=== PATIENT | female | born 1930 | race Caucasian/White ===

== ENCOUNTER 2018-12-05 21:18 | Inpatient (IN) | payer MEDICARE ==
[2018-12-05] MEDS ORDERED: MORPHINE SULFATE 2 MG/ML DISP.SYRIN IV ONE ×2 (21:43→23:30)
[2018-12-05] MEDS ORDERED: ONDANSETRON HCL/PF 2 MG/ML VIAL IV ONE (21:43)
--- NOTE | 2018-12-05 21:46 | ERNOTE ---
Lower Extremity HPI - General Lower Extremities Pain: hip: left - fall from standing Time Seen by Provider: 12/05/18 21:37 Source: patient Exam Limitations: no limitations - Immun/Allergies/Home Medications Immunizations: IMMUNIZATION HX Immunizations Up to Date Yes History of Influenza Vaccine No Allergies/Adverse Reactions: Allergies Allergy/AdvReac Type Severity Reaction Status Date / Time No Known Allergies Allergy Unverified 12/05/18 21:27 Home Medications: HOME MEDICATIONS Acetaminophen [Tylenol Arthritis] 2 tab PO DAILY 12/06/18 [Last Taken 12/05/18 07:00] Acetaminophen/Diphenhydramine [Tylenol Pm Ex-Strength Caplet] 2 ea PO HS [Last Taken 12/04/18 21:00] Amlodipine Besylate/Benazepril [Lotrel 10-20 mg Capsule] 1 ea PO DAILY 12/06/18 [Last Taken 12/05/18 07:00] Ascorbic Acid [Vitamin C] 500 mg PO DAILY 12/06/18 [Last Taken 12/05/18 07:00] Fish Oil 2 cap PO BID 12/06/18 [Last Taken 12/05/18 07:00] Garlic 500 mg PO DAILY 12/06/18 [Last Taken 12/05/18 07:00] Lutein/Zeaxanthin [Ocuvite Lutein 25-5 mg Softgel] 1 ea PO DAILY 12/06/18 [Last Taken 12/05/18 07:00] Metoprolol Tartrate 50 mg PO DAILY 12/06/18 [Last Taken 12/05/18 07:00] Mv-Min/Iron/Folic/Calcium/Vitk [Women's Multivitamin Tablet] 1 ea PO DAILY 12/06/18 [Last Taken 12/05/18 07:00] - History of Present Illness Narrative: Pt lost balance with her walker and fell striking her left hip on some childrens furnature. Pain in left hip/ groin Occurred: just prior to arrival Location of Incident: home Method of Injury: Reports: fell Reason for Fall: Reports: lost balance Loss of Consciousness: Reports: no loss of consciousness Modifying Factors - (Improves): Reports: immobilization Modifying Factors - (Worsens): Reports: movement Review of Systems - Review of Systems Constitutional: Absent: recent illness EYE: Absent: vision changes Gastrointestinal/Abdominal: Absent: nausea, vomiting Musculoskeletal: Present: See HPI. Absent: back pain Skin: Absent: rash Hematologic/Lymphatic: Present: easy bruising Medical History (Last Reviewed 12/06/18 @ 03:22 by Ros Tran RN) HTN (hypertension) (Acute) Hx of fracture of right hip Hypertension Surgical History: Surgical History (Last Reviewed 12/06/18 @ 02:32 by Justin Morataya DO) History of repair of hip fracture Hx laparoscopic cholecystectomy Hx of breast biopsy Hx of rhinoplasty Family History: Family History (Last Reviewed 12/06/18 @ 02:32 by Justin Morataya DO) Other No pertinent family history Social History: Preferred Language Ecuadorean Do you have any worship or No cultural preference? Smoking Status Never smoker Alcohol Use none Drug Use none No Social History Section defined Physical Exam - Physical Exam General Appearance: Present: wd/wn, alert, mild distress Head Exam: Present: normal inspection, no evidence of injury Neck: Present: normal inspection, nontender, supple Respiratory: Present: no respiratory distress, no accessory muscle use Gastrointestinal/Abdominal: Present: nontender, nondistended, soft Back Exam: Present: normal range of motion Extremity Exam: Present: bony tenderness - pelvis, and left groin/ hip. , other - vascular intact to left leg to foot. Neurological Exam: Present: alert, oriented, normal mood/affect, no motor/sensory deficits, other - good m/s to left leg Skin Exam: Present: normal color, warm/dry Progress - Results and Orders Patient's Lab Results:: I have reviewed the patient's lab results. Results and Orders: Laboratory Tests 12/05/18 12/05/18 22:14 22:14 WBC 5.5 Hgb 12.1 L Hct 38.5 Plt Count 210 Sodium 137 Potassium 3.7 Chloride 100 Carbon Dioxide 27.9 BUN 21 Creatinine 0.89 Random Glucose 116 H Calcium 10.0 - Vital Signs Patient's Vital Signs:: I have reviewed the patient's vital signs. Vital Signs: Vital Signs 12/05/18 21:21 Temperature 36.5 C Pulse Rate 80 Respiratory Rate 26 H Blood Pressure 173/83 H O2 Sat by Pulse Oximetry 87 L - X-Ray X-Ray #1 X-Ray: pelvis Interpretation: Reviewed by me X-ray Comments: IMPRESSION: 1. No definite displaced pelvic fracture. 2. Additional comments are as above. Electronically signed by Kavita Toussaint M.D X-Ray #2 X-Ray: hip Interpretation: Reviewed by me X-ray Comments: IMPRESSION: 1. Evaluation overall limited by underlying osteoporosis. Questionable step-off of the cortex at the subcapital region of the left femoral neck versus artifact from positioning. I would recommend consideration of noncontrast CT examination of the left hip. 2. Incidental note of partially visualized right hip hemiarthroplasty hardware, with lucent appearance of the proximal femoral bone around the hardware as above. Consider possible aseptic loosening versus infection. Ordering provider Justin Morataya DO was informed regarding the above results by telephone on 12/05/2018 11:12 PM. Electronically signed by Kavita Toussaint M.D.. - CT/Ultrasound CT/Ultrasound Narrative: CT left hip: IMPRESSION: 1. Nondisplaced, mildly impacted subcapital left femoral neck fracture. 2. Additional comments are as above. Electronically signed by Kavita Toussaint M.D - Progress/Reassessment Chief Complaint: Hip Pain/Injury Progress:: Improved Progress Note-Subjective: 12/06/18 06:27 Approx 02:[address] Santiago and he agrees with admit and asks that the patient remain NPO as she will probably go to surgery this am. I spoke with Dr. Hines and she agrees with admission and will see the patient in the morning. Departure Clinical Impression: Subcapital fracture of left femur Qualifiers: Encounter type: initial encounter Fracture type: closed Qualified Code(s): S72.012A - Unspecified intracapsular fracture of left femur, initial encounter for closed fracture - Departure Disposition: Still a patient Condition: Good
[2018-12-05 22:23] LABS: Anion Gap 12.8 mmol/L (6.8-13.8); BUN/Creatinine Ratio 23.6 (9.0-21.6); Carbon Dioxide 27.9 mmol/L (24-32.6); Estimated Creat Clear 40.9; Potassium 3.7 mmol/L (3.4-4.6)
[2018-12-05 22:24] LABS: Hematocrit 38.5 % (37.0-47.0); Hemoglobin 12.1 gm/dL (12.5-16.0); Mean Cell Volume 94.4 fl (78-100); Mean Corpuscular Hemoglobin 29.7 pg (27-31); Mean Corpuscular Hgb Conc 31.4 g/dl (32-36); Mean Platelet Volume 10.1 fl (8-12.5); Neutrophil # 4.1 K/mm3 (1.3-6.0); Neutrophil % 73.7 % (42-75.0); Platelet Count 210 K/mm3 (150-450); Red Blood Count 4.08 M/mm3 (4.2-5.4); Red Cell Distribution Width 13.4 % (11.5-14.0); White Blood Count 5.5 K/mm3 (4.0-10.5)
[2018-12-06] MEDS ORDERED: MORPHINE SULFATE 2 MG/ML DISP.SYRIN IV PRN ×2 (02:11→14:26)
[2018-12-06 03:20] LABS: Urine Bilirubin Negative (NEGATIVE); Urine Blood Negative /ul (NEGATIVE); Urine Ketone Negative (NEGATIVE); Urine Protein Negative (NEGATIVE); Urine Specific Gravity 1.015 SP.GR. (1.005-1.010); Urine Urobilinogen Normal (NORMAL)
[2018-12-06 03:27] LABS: Urine Nitrite Positive (NEGATIVE)
[2018-12-06 03:28] LABS: Urine Appearance Slightly Cloudy (CLEAR); Urine Bacteria 3+; Urine Color Yellow; Urine RBC None Seen /hpf (0-5); Urine WBC None Seen /hpf (0-5)
[2018-12-06] MEDS ORDERED: ceFAZolin SODIUM 1 GM VIAL IV PRN (08:30)
--- NOTE | 2018-12-06 08:30 | CONS ---
[facility] - General Date of Service: 12/06/18 Narrative: Mrs. Sun is a pleasant 88-year-old female who got tripped up by her dog at home and fell onto her left hip resulting in significant left hip pain and an inability to weight-bear. She states that she lives at home with her daughter. She uses a walker which she felt was slightly top-heavy because she likes to carry around a lot of things and this contributed to the fall as well. She is a household ambulator who performs her own activities of daily living. She has had a previous right hip hemiarthroplasty. She denies any previous left hip pain. She otherwise states that she is in decent health. She denies any other areas of pain at this time. Source: patient Exam Limitations: no limitations - History of Present Illness Timing/Duration: 24 hours Severity: mild Modifying Factors - (Worsens): Reports: movement Modifying Factors - (Improves): Reports: immobilization Associated Symptoms: denies symptoms Allergies/Adverse Reactions: Allergies No Known Allergies Allergy (Unverified 12/05/18 21:27) Home Medications: Home Medications Medication Instructions Recorded Last Taken Acetaminophen [Tylenol Arthritis] 2 tab PO DAILY 12/06/18 12/05/18 07:00 Acetaminophen/Diphenhydramine 2 ea PO HS 12/06/18 12/04/18 21:00 [Tylenol Pm Ex-Strength Caplet] Amlodipine Besylate/Benazepril 1 ea PO DAILY 12/06/18 12/05/18 07:00 [Lotrel 10-20 mg Capsule] Ascorbic Acid [Vitamin C] 500 mg PO DAILY 12/06/18 12/05/18 07:00 Fish Oil 2 cap PO BID 12/06/18 12/05/18 07:00 Garlic 500 mg PO DAILY 12/06/18 12/05/18 07:00 Lutein/Zeaxanthin [Ocuvite Lutein 1 ea PO DAILY 12/06/18 12/05/18 07:00 25-5 mg Softgel] Metoprolol Tartrate 50 mg PO DAILY 12/06/18 12/05/18 07:00 Mv-Min/Iron/Folic/Calcium/Vitk 1 ea PO DAILY 12/06/18 12/05/18 07:00 [Women's Multivitamin Tablet] Procedures ANT NASAL PACK FOR EPIST (01/03/10) Colonoscopy (07/01/05) Medications - Medications Current Medications: Current Medications Morphine Sulfate (Morphine Sulfate) 2 mg IV Q1H PRN PRN Reason: Pain Stop: 01/05/19 02:16 Last Admin: 12/06/18 07:08 Dose: 2 mg Documented by: Review of Systems - Review of Systems Generalized/Overall Review: Present: No Symptoms Reported Physical Examination - Exam Narrative: Left lower extremity: No ecchymosis, lacerations, or abrasions. Palpable dorsalis pedis pulse. Sensations intact light touch. She is able to flex and extend her toes. She has pain with any hip range of motion. Her thigh and calf are soft. Vital Signs: Vital Signs - Last Taken Temp 36.1 C 12/06/18 06:52 Pulse 100 12/06/18 06:52 Resp 16 12/06/18 06:52 BP 130/77 12/06/18 06:52 Pulse Ox 94 12/06/18 06:52 O2 Oxygen Delivery Method Room Air Constitutional: Present: Alert, Oriented x3 - Results and Findings: Narrative: AP pelvis 2 views of left hip, CT left hip: Mildly impacted subcapital femoral neck fracture without any significant displacement. Status post right hip hemiarthroplasty Lab/Microbiology results last 24 hrs: Abnormal/Pending Laboratory Last 24 HRS 12/06/18 12/05/18 12/05/18 03:19 22:14 22:14 RBC 4.08 L Hgb 12.1 L MCHC 31.4 L Lymphocytes % 18.5 L Lymphocytes # 1.02 L BUN/Creatinine Ratio 23.6 H Random Glucose 116 H Urine Nitrate Positive H Urine Bacteria 3+ H - Assessments/Findings (1) Subcapital fracture of left femur Diagnosis(s): We discussed her pathology and options for treatment. The plan is to proceed with percutaneous fixation with cannulated screws by my partner. He will discuss this with her and as long as she is medically sound the plan is to proceed with surgery today. She will continue to be n.p.o. She will receive IV Ancef preoperatively. Problem: Acute Qualifiers: Encounter type: initial encounter Fracture type: closed Qualified Code(s): S72.012A - Unspecified intracapsular fracture of left femur, initial encounter for closed fracture
[2018-12-06] MEDS ORDERED: NORMAL SALINE 500 ML IV ONE (10:25)
[2018-12-06] MEDS ORDERED: LUTEIN PO SCH (11:15)
[2018-12-06] MEDS ORDERED: ZEAXANTHIN PO SCH (11:15)
--- NOTE | 2018-12-06 11:18 | HP ---
Chief Complaint - Chief Complaint Date of Service: 12/06/18 Time of Service: 11:09 Chief Complaint: I fell and now I have left hip pain. History of Present Illness: 88-year-old female with past medical history of osteoporosis, right h ip hemiarthroplasty, and hypertension was brought to our ER due to left hip pain and inability to ambulate secondary to a fall that occurred in her home a day ago when patient tripped with her walker while walking in her house. Patient reports tripping over her dog and losing her balance and falling onto her left side. She reports hitting her left hip and left shoulder. Since then she has been unable to bear weight on the involved side and has pain at the hip. Patient is active and carries out her activities of daily living with the assistance of a walker and also lives with her daughter. Medical History (Last Reviewed 12/06/18 @ 03:22 by Ros Tran RN) HTN (hypertension) (Acute) Hx of fracture of right hip Hypertension Surgical History: Surgical History (Last Reviewed 12/06/18 @ 03:22 by Ros Tran RN) History of repair of hip fracture Hx laparoscopic cholecystectomy Hx of breast biopsy Hx of rhinoplasty Family History: Family History (Last Reviewed 12/06/18 @ 03:22 by Ros Tran RN) Father No pertinent family history Mother No pertinent family history Other Social History: Patient Lives/Resources Home Utilized Occupation retired Preferred Language Syriac Do you have any samaritan or No cultural preference? Smoking Status Never smoker Have you smoked in the past 12 No months Do you dip or chew tobacco No Alcohol Use none Drug Use none No Social History Section defined Peds Patient Hx - Developmental: No Pertinent Hx Peds Patient Hx - Medical: No Pertinent Hx Peds Patient Hx - Cardiac/Respiratory: No Pertinent Hx Peds Patient Hx - Surgical: No Surgical History Patient History - Cancer: No Hx of Cancer Review Of Systems (GEN) - Review of Systems Generalized/Overall Review: Present: No Symptoms Reported EENTM: Present: No Symptoms Reported Respiratory: Present: No Symptoms Reported Cardiac: Present: No Symptoms Reported Abdominal: Present: No Symptoms Reported Genitourinary: Present: No Symptoms Reported Musculoskeletal: Present: Joint Pain, Joint Swelling, Other - Left hip pain and swelling with tenderness to palpation Neurological: Present: No Symptoms Reported Skin: Present: No Symptoms Reported Endocrine: Present: No Symptoms Reported Immunizations: IMMUNIZATION HX Immunizations Up to Date Yes History of Influenza Vaccine No Allergies/Adverse Reactions: Allergies Allergy/AdvReac Type Severity Reaction Status Date / Time No Known Allergies Allergy Unverified 12/05/18 21:27 Home Medications: HOME MEDICATIONS Acetaminophen [Tylenol Arthritis] 2 tab PO DAILY 12/06/18 [Last Taken 12/05/18 07:00] Acetaminophen/Diphenhydramine [Tylenol Pm Ex-Strength Caplet] 2 ea PO HS 12/06/18 [Last Taken 12/04/18 21:00] Amlodipine Besylate/Benazepril [Lotrel 10-20 mg Capsule] 1 ea PO DAILY 12/06/18 [Last Taken 12/05/18 07:00] Ascorbic Acid [Vitamin C] 500 mg PO DAILY 12/06/18 [Last Taken 12/05/18 07:00] Fish Oil 2 cap PO BID 12/06/18 [Last Taken 12/05/18 07:00] Garlic 500 mg PO DAILY 12/06/18 [Last Taken 12/05/18 07:00] Lutein/Zeaxanthin [Ocuvite Lutein 25-5 mg Softgel] 1 ea PO DAILY 12/06/18 [Last Taken 12/05/18 07:00] Metoprolol Tartrate 50 mg PO DAILY 12/06/18 [Last Taken 12/05/18 07:00] Mv-Min/Iron/Folic/Calcium/Vitk [Women's Multivitamin Tablet] 1 ea PO DAILY 12/06/18 [Last Taken 12/05/18 07:00] Exam - Exam Vital Signs: Vital Signs - Last Taken Temp 36.6 C 12/06/18 10:00 Pulse 106 H 12/06/18 10:00 Resp 18 12/06/18 10:00 BP 132/78 12/06/18 10:00 Pulse Ox 98 12/06/18 10:00 Constitutional: Present: Alert, Oriented x3, Cooperative, Well developed, Well nourished, No distress ENT Exam: Present: normal ENT inspection, hearing grossly normal, pharynx normal, TMs normal Eye Exam: bilateral eye: normal inspection, PERRL, EOMI Neck: Present: non-tender, full range of motion, supple, normal inspection, trachea midline Back Exam: Present: normal inspection, no CVA tenderness, no vertebral tenderness Breasts: Present: Exam deferred Respiratory: Present: chest non-tender, lungs clear, normal breath sounds, no respiratory distress, no accessory muscle use Cardiovascular/Chest: Present: normal peripheral pulses, regular rate, rhythm, no chest tenderness, no edema, no gallop, no JVD, no murmur Peripheral Pulses: carotid (R): 3+, carotid (L): 3+, femoral (R): 3+, femoral (L): 3+ Abdomen: Present: Normal bowel sounds, soft, nontender, nondistended, no rebound tenderness, no hepatospenomegaly, no masses /Rectal: Present: Exam deferred Extremity: Present: no pedal edema, no calf tenderness, normal capillary refill, other - Decreased range of motion left hip, with tenderness to palpation. No ecchymoses or open wounds visible. Normal pulse and normal sensation noted. 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, normal cerebellar test, no motor/sensory deficits, alert, normal mood/affect, oriented x 3 Appearance: Present: appropriate appearance, appropriate insight, neat, no memory impairment Eye contact: Present: cooperative, good eye contact, normal speech Thoughts: Present: normal thought pattern Diagnostic Studies: Abnormal Lab Results 12/05/18 12/05/18 12/06/18 Range/Units 22:14 22:14 03:19 RBC 4.08 L (4.2-5.4) M/mm3 Hgb 12.1 L (12.5-16.0) gm/dL MCHC 31.4 L (32-36) g/dl Lymphocytes % 18.5 L (20-51) % Lymphocytes # 1.02 L (1.5-3.5) k/mm3 BUN/Creatinine Ratio 23.6 H (9.0-21.6) Random Glucose 116 H (70-110) mg/dL Urine Nitrate Positive H (NEGATIVE) Urine Bacteria 3+ H (NONE) Laboratory Results WBC 5.5 K/mm3 (4.0-10.5) 12/05/18 22:14 RBC 4.08 M/mm3 (4.2-5.4) L 12/05/18 22:14 Hgb 12.1 gm/dL (12.5-16.0) L 12/05/18 22:14 Hct 38.5 % (37.0-47.0) 12/05/18 22:14 MCV 94.4 fl (78-100) 12/05/18 22:14 MCH 29.7 pg (27-31) 12/05/18 22:14 MCHC 31.4 g/dl (32-36) L 12/05/18 22:14 RDW 13.4 % (11.5-14.0) 12/05/18 22:14 Plt Count 210 K/mm3 (150-450) 12/05/18 22:14 MPV 10.1 fl (8-12.5) 12/05/18 22:14 Immature Gran % (Auto) 0.40 % (0.001-0.429) 12/05/18 22:14 Immature Gran # (Auto) 0.02 K/mm3 (0.000-0.0310) 12/05/18 22:14 Neutrophils % 73.7 % (42-75.0) 12/05/18 22:14 Lymphocytes % 18.5 % (20-51) L 12/05/18 22:14 Monocytes % 6.7 % (0.0-9) 12/05/18 22:14 Eosinophils % 0.5 % (0.0-3.0) 12/05/18 22:14 Basophils % 0.2 % (0.0-1.0) 12/05/18 22:14 Nucleated RBC % 0.0 k/mm3 (0-1) 12/05/18 22:14 Neutrophils # 4.1 K/mm3 (1.3-6.0) 12/05/18 22:14 Lymphocytes # 1.02 k/mm3 (1.5-3.5) L 12/05/18 22:14 Monocytes # 0.4 k/mm3 (0.0-1.0) 12/05/18 22:14 Eosinophils # 0.0 k/mm3 (0.0-0.7) 12/05/18 22:14 Absolute Basophils 0.0 k/mm3 (0.0-0.1) 12/05/18 22:14 Sodium 137 mmol/L (132-142) 12/05/18 22:14 Plasma Sodium 137 mmol/L (130-142) 12/05/18 22:14 Potassium 3.7 mmol/L (3.4-4.6) 12/05/18 22:14 Chloride 100 mmol/L (97-106) 12/05/18 22:14 Carbon Dioxide 27.9 mmol/L (24-32.6) 12/05/18 22:14 Anion Gap 12.8 mmol/L (6.8-13.8) 12/05/18 22:14 BUN 21 mg/dL (3-23) 12/05/18 22:14 Creatinine 0.89 mg/dL (0.4-1.4) 12/05/18 22:14 Est GFR (Non-Af Amer) 64 mL/min (60-130) 12/05/18 22:14 BUN/Creatinine Ratio 23.6 (9.0-21.6) H 12/05/18 22:14 Random Glucose 116 mg/dL (70-110) H 12/05/18 22:14 Calcium 10.0 mg/dL (7.9-10.9) 12/05/18 22:14 Urine Color Yellow 12/06/18 03:19 Urine Appearance Slightly cloudy (CLEAR) 12/06/18 03:19 Urine pH 6.0 pH (5.0-7.0) 12/06/18 03:19 Ur Specific [place] 1.015 SP.GR. (1.005-1.010) 12/06/18 03:19 Urine Protein Negative mg/dL (NEGATIVE) 12/06/18 03:19 Urine Glucose (UA) Negative mg/dL (NEGATIVE) 12/06/18 03:19 Urine Ketones Negative mg/dL (NEGATIVE) 12/06/18 03:19 Urine Blood Negative /ul (NEGATIVE) 12/06/18 03:19 Urine Nitrate Positive (NEGATIVE) H 12/06/18 03:19 Urine Bilirubin Negative mg/dl (NEGATIVE) 12/06/18 03:19 Urine Urobilinogen Normal EU/dl (NORMAL) 12/06/18 03:19 Ur Leukocyte Esterase Negative /ul (NEGATIVE) 12/06/18 03:19 Urine RBC None seen /hpf (0-5) 12/06/18 03:19 Urine WBC None seen /hpf (0-5) 12/06/18 03:19 Ur Epithelial Cells None seen /hpf (0-5) 12/06/18 03:19 Urine Bacteria 3+ (NONE) H 12/06/18 03:19 Urine Culture Comments Culture to follow 12/06/18 03:19 Assessment/Plan - Narrative Narrative: Patient was evaluated as well as a medical record which included a x-ray of the left hip followed by a CT scan of the involved hip which confirmed a nondisplaced mildly impacted subcapital left femoral neck fracture. Orthopedic surgeon was consulted and agreed to operate on patient sometime today, therefore patient was placed on n.p.o. and was treated with prophylactic IV antibiotics. There were no significant finding on labs and patient maintains stable vitals. We will follow-up after the procedure. In the meantime she is been administered medications for pain control and IV fluids for optimal hydration. - Assessment/Plan (1) Subcapital fracture of left femur Problem: Acute Qualifiers: Encounter type: initial encounter Fracture type: closed Qualified Code(s): S72.012A - Unspecified intracapsular fracture of left femur, initial encounter for closed fracture (2) Fall Problem: Acute (3) HTN (hypertension) Problem: Acute (4) Frailty Problem: Acute
[2018-12-06] MEDS: NORMAL SALINE 1,000 ML IV ONE (11:24)
[2018-12-06] MEDS: METOPROLOL TARTRATE 50 MG TABLET PO SCH (11:36)
--- NOTE | 2018-12-06 11:36 | ANES ---
Anesthesia Pre Procedure Eval Vitals/Labs: Last Vital Signs Temp 36.6 C 12/06/18 10:00 Pulse 106 H 12/06/18 10:00 Resp 18 12/06/18 10:00 BP 132/78 12/06/18 10:00 Pulse Ox 98 12/06/18 10:00 HOME MEDICATIONS Acetaminophen [Tylenol Arthritis] 2 tab PO DAILY 12/06/18 [Last Taken 12/05/18 07:00] Acetaminophen/Diphenhydramine [Tylenol Pm Ex-Strength Caplet] 2 ea PO HS 12/06/18 [Last Taken 12/04/18 21:00] Amlodipine Besylate/Benazepril [Lotrel 10-20 mg Capsule] 1 ea PO DAILY 12/06/18 [Last Taken 12/05/18 07:00] Ascorbic Acid [Vitamin C] 500 mg PO DAILY 12/06/18 [Last Taken 12/05/18 07:00] Fish Oil 2 cap PO BID 12/06/18 [Last Taken 12/05/18 07:00] Garlic 500 mg PO DAILY 12/06/18 [Last Taken 12/05/18 07:00] Lutein/Zeaxanthin [Ocuvite Lutein 25-5 mg Softgel] 1 ea PO DAILY 12/06/18 [Last Taken 12/05/18 07:00] Metoprolol Tartrate 50 mg PO DAILY 12/06/18 [Last Taken 12/05/18 07:00] Mv-Min/Iron/Folic/Calcium/Vitk [Women's Multivitamin Tablet] 1 ea PO DAILY 12/06/18 [Last Taken 12/05/18 07:00] Allergies/Adverse Reactions: Allergies Allergy/AdvReac Type Severity Reaction Status Date / Time No Known Allergies Allergy Unverified 12/05/18 21:27 - Planned Procedure Planned Procedure: L-HIP FRACTURE Medication List Reviewed:: Yes Allergies Verified: Yes Medical History (Last Reviewed 12/06/18 @ 11:32 by Tarik Duncan CRNA) HTN (hypertension) (Acute) Hx of fracture of right hip Hypertension Surgical History (Last Reviewed 12/06/18 @ 11:32 by Tarik Duncan CRNA) History of repair of hip fracture Hx laparoscopic cholecystectomy Hx of breast biopsy Hx of rhinoplasty Family History (Last Reviewed 12/06/18 @ 11:32 by Tarik Duncan CRNA) Father No pertinent family history Mother No pertinent family history Other - Family Anesthesia History Family History:: no untoward family reactions to anesthesia, no familial bleeding tendencies, no family history of clotting disorders, no family history of premature - Airway/Neck/Teeth Within Normal Limits:: Yes Denture Type: Full upper Neck Exam: full range of motion Mallampatti Score: 2 Thyromental (T-M) distance: > 6 cm Mandibulo Hyoid distance: > 3 cm - Respiratory Respiratory Physical: lungs clear - currently on O2 Smoking Status: Never smoker Discussed smoking cessation including day of surgery: No Sleep Apnea currently treated: No Sleep Apnea by current assessment: No - Cardiovascular Cardiac History: hypertension, hyperlipidemia Tolerate Activity: Fair - with walker Heart Sounds: S1 & S2, Irregular - occassionally - Anesthesia Assessment and Plan ASA Class: PS, III Anesthesia Type Plan: Spinal Planned difficult intubation/equipment available: No
--- NOTE | 2018-12-06 13:08 | ANES ---
Post Anesthesia Assessment - Vital Signs Vitals: Last Vital Signs Temp 36.6 C 12/06/18 10:00 Pulse 106 H 12/06/18 11:36 Resp 18 12/06/18 10:00 BP 132/78 12/06/18 11:36 Pulse Ox 98 12/06/18 10:00 Airway Patency: Normal - Mental Status Level Of Consciousness: Awake, Alert - Pain Level Pain Score: 0 - N/V Assessment Nausea/Vomiting Presence: None Dehydration:: No
[2018-12-06] MEDS ORDERED: MAGNESIUM HYDROXIDE 30 ML UDC PO PRN (14:26)
[2018-12-06] MEDS ORDERED: ACETAMINOPHEN 500 MG TABLET PO PRN (14:26)
[2018-12-06] MEDS ORDERED: MAG HYDROX/ALUMINUM HYD/SIMETH 30 ML UDC PO PRN (14:26)
[2018-12-06] MEDS ORDERED: HYDROcodone/ACETAMINOPHEN 1 EACH TABLET PO PRN ×2 (14:26)
--- NOTE | 2018-12-06 14:36 | ANES ---
Anesthesia Pre Procedure Eval Vitals/Labs: Last Vital Signs Temp 36.6 C 12/06/18 10:00 Pulse 106 H 12/06/18 11:36 Resp 18 12/06/18 10:00 BP 132/78 12/06/18 11:36 Pulse Ox 98 12/06/18 10:00 HOME MEDICATIONS Acetaminophen [Tylenol Arthritis] 2 tab PO DAILY 12/06/18 [Last Taken 12/05/18 07:00] Acetaminophen/Diphenhydramine [Tylenol Pm Ex-Strength Caplet] 2 ea PO HS 12/06/18 [Last Taken 12/04/18 21:00] Amlodipine Besylate/Benazepril [Lotrel 10-20 mg Capsule] 1 ea PO DAILY 12/06/18 [Last Taken 12/05/18 07:00] Ascorbic Acid [Vitamin C] 500 mg PO DAILY 12/06/18 [Last Taken 12/05/18 07:00] Fish Oil 2 cap PO BID 12/06/18 [Last Taken 12/05/18 07:00] Garlic 500 mg PO DAILY 12/06/18 [Last Taken 12/05/18 07:00] Lutein/Zeaxanthin [Ocuvite Lutein 25-5 mg Softgel] 1 ea PO DAILY 12/06/18 [Last Taken 12/05/18 07:00] Metoprolol Tartrate 50 mg PO DAILY 12/06/18 [Last Taken 12/05/18 07:00] Mv-Min/Iron/Folic/Calcium/Vitk [Women's Multivitamin Tablet] 1 ea PO DAILY 12/06/18 [Last Taken 12/05/18 07:00] Allergies/Adverse Reactions: Allergies Allergy/AdvReac Type Severity Reaction Status Date / Time No Known Allergies Allergy Unverified 12/05/18 21:27 - Planned Procedure Planned Procedure: ORIF Left HIP Medication List Reviewed:: Yes Allergies Verified: Yes Medical History (Last Reviewed 12/06/18 @ 14:35 by Rao Whitley CRNA) HTN (hypertension) (Acute) Hx of fracture of right hip Hypertension Surgical History (Last Reviewed 12/06/18 @ 14:35 by Rao Whitley CRNA) History of repair of hip fracture Hx laparoscopic cholecystectomy Hx of breast biopsy Hx of rhinoplasty Family History (Last Reviewed 12/06/18 @ 14:35 by Rao Whitley CRNA) Father No pertinent family history Mother No pertinent family history Other - Family Anesthesia History Family History:: no untoward family reactions to anesthesia, no familial bleeding tendencies, no family history of clotting disorders, no family history of premature - Airway/Neck/Teeth Within Normal Limits:: Yes Denture Type: Full upper Mallampatti Score: 2 Thyromental (T-M) distance: > 6 cm Mandibulo Hyoid distance: > 3 cm - Respiratory Respiratory Physical: decreased breath sounds Smoking Status: Never smoker Discussed smoking cessation including day of surgery: No Sleep Apnea currently treated: No Sleep Apnea by current assessment: No Discussed Risks/Treatment of LYSSA: No - Cardiovascular Tolerate Activity: Fair Heart Sounds: S1 & S2, Regular - Anesthesia Assessment and Plan ASA Class: PS, III, E Anesthesia Type Plan: Spinal
--- NOTE | 2018-12-06 14:36 | ANES ---
Post Anesthesia Discharge - Transfer of Care Transfer of Care handoff given to nurse: Yes - Discharge from PACU Discharge from PACU when meets criteria: Yes - Discharge to ASU Discharge to ASU-no complications/pt stable: Yes
--- NOTE | 2018-12-06 14:39 | OR ---
Operative Report - Dictated Report Narrative: Date: 12/06/2018 Surgeon: Giles Shaw M.D. Rubber Stamp Maker: Anderson Domínguez PA-C Preoperative diagnosis: Left valgus impacted, subcapital femoral neck fracture Postoperative diagnosis: Left valgus impacted, subcapital femoral neck fracture Operations and procedures: 1. Percutaneous cannulated screw fixation of a left valgus impacted femoral neck fracture 2. Intraoperative interpretation of radiographs Anesthesia: Spinal Specimens: None Estimated blood loss: Less than 25 mL Retained implants: [employer] 7.0 mm cannulated screws 3, associated washers 2 Complications: None Indications for procedure: Genesis is an 88-year-old female household ambulator who injured the left leg aftera fall from standing height. They were admitted to the hospital after being evaluated in the emergency department. Once the medical provider felt that they were stable for surgical treatment, the risks and benefits alternatives were discussed. The risks of , blood clots, bleeding, infection, nerve/tendon/blood vessel injury, malunion, nonunion, failure of im plants, painful implants, arthrosis, and need for additional procedures were discussed. The extremity was marked and consent was obtained on the floor. Procedure: After marking the operative extremity on the floor, the patient was taken to the operating room. A timeout was performed. IV antibiotics consisting of 1 g of Ancef was administered. A spinal anesthetic was induced by anesthesia, and the patient was then placed onto a fracture table with a well-padded perineal post. The non-operative leg was placed in a well-padded well leg edmonds in lithotomy position with an SCD on the leg. The operative leg was placed in a well-padded traction boot. No significant reduction maneuver was performed and the leg was placed in a minimal amount of traction. C-arm was brought in to confirm that we had obtained adequate visualization of the fracture and necessary anatomic landmarks of the proximal femur. Next the hip was then prepped and draped in a standard sterile fashion. Next, 3 guidepins were placed through a small lateral incision in an inverted triangle fashion around the periphery of the femoral neck paralleling the head neck angle. C-arm was used to confirm appropriate position and depth of the guide pins. These were then sequentially measured and drilled across the fracture site. Three 7.0 mm partially threaded cannulated screws of appropriate lengths were then placed sequentially and hand tightened to provide compression across the fracture site. C-arm was used to confirm appropriate length of our screws. Final images were obtained confirming no screw penetration into the joint. The hip was placed through range of motion and showed no crepitance. The wound was then copiously irrigated with normal saline and subcutaneous tissue closed with 3-0 Vicryl, and the skin was closed with any. Sterile dressings of Xeroform, 4 x 4s, and tegaderm were applied. All sponge, sharp, and instrument counts were correct prior to closing the wounds. The patient was then awoken and transferred to the postanesthesia care unit in stable condition.
[2018-12-06] MEDS: NORMAL SALINE 1,000 ML IV PRN ×2 (15:20→23:22)
[2018-12-06] MEDS: ENALAPRIL MALEATE 20 MG TABLET PO SCH (15:40)
[2018-12-06] MEDS: amLODIPine BESYLATE 10 MG TABLET PO SCH (15:40)
[2018-12-06] MEDS ORDERED: SENNOSIDES/DOCUSATE SODIUM 1 TAB TABLET PO SCH (21:00)
[2018-12-06] MEDS: OMEGA-3 FATTY ACIDS 1 CAP CAPSULE PO SCH (21:13)
[2018-12-07 05:45] LABS: Hematocrit 35.1 % (37.0-47.0); Hemoglobin 11.1 gm/dL (12.5-16.0); Mean Cell Volume 96.7 fl (78-100); Mean Corpuscular Hemoglobin 30.6 pg (27-31); Mean Corpuscular Hgb Conc 31.6 g/dl (32-36); Mean Platelet Volume 10.1 fl (8-12.5); Neutrophil # 8.9 K/mm3 (1.3-6.0); Platelet Count 162 K/mm3 (150-450); Red Blood Count 3.63 M/mm3 (4.2-5.4); Red Cell Distribution Width 13.2 % (11.5-14.0); White Blood Count 10.2 K/mm3 (4.0-10.5)
[2018-12-07 05:58] LABS: Anion Gap 8.1 mmol/L (6.8-13.8); BUN/Creatinine Ratio 24.2 (9.0-21.6); Calcium * 8.8 mg/dL (7.9-10.9); Carbon Dioxide 30.2 mmol/L (24-32.6); Estimated Creat Clear 58.7; Potassium 4.3 mmol/L (3.4-4.6)
[2018-12-07] MEDS: NORMAL SALINE 1,000 ML IV PRN ×2 (07:53→16:59)
[2018-12-07] MEDS ORDERED: BETA-CAROTENE(A) W-C , E/MIN 1 TAB TABLET PO SCH (09:00)
[2018-12-07] MEDS ORDERED: ACETAMINOPHEN 650 MG TABLET PO SCH (09:00)
[2018-12-07] MEDS ORDERED: ASCORBIC ACID 500 MG TABLET PO SCH (09:00)
[2018-12-07] MEDS ORDERED: NALOXONE HCL 0.4 MG/ML VIAL IV STA ×2 (11:43→18:35)
[2018-12-07] MEDS ORDERED: LIDOCAINE HCL 50 ML VIAL IM ONE (11:51)
--- NOTE | 2018-12-07 12:03 | PN ---
Subjective - Date and Time Seen Date: 12/07/18 Time: 11:46 Subjective Narrative: Px is obtunded and unresponsive to verbal or pain stimuli. Objective Objective Narrative: 88-year-old female admitted for left hip fracture was evaluated at bedside and was found to be somnolent difficult to arouse and unresponsive to verbal and painful stimuli. Patient underwent a successful fracture repair in OR yesterday afternoon and was being treated with oral pain medications, she was administered the last dose early this morning and since then she has been sleeping soundly and snoring. Patient however is saturating adequately maintained stable vitals. Given the duration of this adverse effect to the medications she is to be administered Narcan to reverse the effects of the opioids. We will reevaluate her shortly after the medication has been administered. Patient's postop hemoglobin is at 11 and electrolytes all within normal limits. Patient was also found to have a UTI and growth of bacteria on her urine culture, so IV antibiotics were added to her treatment. - Review of Systems Generalized/Overall Review: Reports: No Symptoms Reported EENTM: Reports: No Symptoms Reported Respiratory: Reports: No Symptoms Reported Cardiac: Reports: No Symptoms Reported Abdominal: Reports: No Symptoms Reported Genitourinary Symptoms: Reports: No Symptoms Reported Musculoskeletal Complaints: Reports: Joint Pain, Joint Swelling Neurological: Reports: No Symptoms Reported Skin: Reports: No Symptoms Reported Endocrine: Reports: No Symptoms Reported - Vitals Vitals: Last Vital Signs Temp 36.6 C 12/07/18 10:12 Pulse 89 12/07/18 10:12 Resp 18 12/07/18 10:12 BP 144/59 12/07/18 10:12 Pulse Ox 98 12/07/18 10:12 - Abnormal Lab Findings Abnormal Lab Findings: Abnormal Lab Results 12/07/18 12/07/18 Range/Units 05:40 05:40 RBC 3.63 L (4.2-5.4) M/mm3 Hgb 11.1 L (12.5-16.0) gm/dL Hct 35.1 L (37.0-47.0) % MCHC 31.6 L (32-36) g/dl Immature Gran % (Auto) 0.80 H (0.001-0.429) % Immature Gran # (Auto) 0.08 H (0.000-0.0310) K/mm3 Neutrophils % 88.0 H (42-75.0) % Lymphocytes % 4.8 L (20-51) % Neutrophils # 8.9 H (1.3-6.0) K/mm3 Lymphocytes # 0.49 L (1.5-3.5) k/mm3 BUN/Creatinine Ratio 24.2 H (9.0-21.6) Random Glucose 120 H (70-110) mg/dL - Exam Constitutional: Present: Well nourished, No distress, Obtunded, Elderly ENT Exam: Present: normal ENT inspection, pharynx normal, TMs normal Neck: Present: non-tender, full range of motion, supple, normal inspection, trachea midline Breasts: Present: Exam deferred, Nontender Respiratory: Present: chest non-tender, lungs clear, normal breath sounds, no respiratory distress, no accessory muscle use Cardiovascular/Chest: Present: normal peripheral pulses, regular rate, rhythm, no chest tenderness, no edema, no gallop, no JVD, no murmur, no rub Abdomen: Present: Normal bowel sounds, soft, nontender, nondistended, no rebound tenderness, no hepatospenomegaly, no masses /Rectal: Present: Exam deferred Extremity: Present: no pedal edema, no calf tenderness, normal capillary refill, pelvis stable, other - Left hip covered by dry clean bandage, with no evidence of active bleeding or infection. Skin Exam: Present: normal color, warm/dry, no cyanosis Lymphatic: Present: no adenopathy Neurologic: Present: depressed affect, other - Unable to do a neurological assessment patient is obtunded during evaluation. Appearance: Present: appropriate appearance, appropriate insight, neat Cauti Physician Documentation - Urinary Catheter Management Urethral (Moyer) Urethral Indwelling: No Date of Insertion: 12/06/18 Time of Insertion: 02:46 Assessment/Plan Plan Narrative: We will reevaluate patient after administration of Narcan to reverse opioid effect. Follow-up CBC has been ordered for the morning to reevaluate postop hemoglobin. Will follow up with any further recommendations from ortho. - Problems/Diagnosis (1) Subcapital fracture of left femur Problem: Acute Qualifiers: Encounter type: initial encounter Fracture type: closed Qualified Code(s): S72.012A - Unspecified intracapsular fracture of left femur, initial encounter for closed fracture (2) Fall Problem: Acute (3) HTN (hypertension) Problem: Acute (4) Frailty Problem: Acute (5) UTI (urinary tract infection) Problem: Acute (6) Opioid intoxication Problem: Acute
[2018-12-07] MEDS ORDERED: NALOXONE HCL 1 MG/1 ML SYRG ONE ×2 (12:54→19:32)
--- NOTE | 2018-12-07 13:04 | PN ---
Subjective - Date and Time Seen Date: 12/07/18 Time: 08:30 Subjective Narrative: Patient is asleep, unresponsive to sternal rub, nursing states this has been since she received a dose of [place] during the nighttime. Note patient's vitals were stable, she appears to be in no acute distress. Objective - Vitals Vitals: Last Vital Signs Temp 36.6 C 12/07/18 10:12 Pulse 89 12/07/18 10:12 Resp 18 12/07/18 10:12 BP 144/59 12/07/18 10:12 Pulse Ox 98 12/07/18 10:12 - Abnormal Lab Findings Abnormal Lab Findings: Abnormal Lab Results 12/07/18 12/07/18 Range/Units 05:40 05:40 RBC 3.63 L (4.2-5.4) M/mm3 Hgb 11.1 L (12.5-16.0) gm/dL Hct 35.1 L (37.0-47.0) % MCHC 31.6 L (32-36) g/dl Immature Gran % (Auto) 0.80 H (0.001-0.429) % Immature Gran # (Auto) 0.08 H (0.000-0.0310) K/mm3 Neutrophils % 88.0 H (42-75.0) % Lymphocytes % 4.8 L (20-51) % Neutrophils # 8.9 H (1.3-6.0) K/mm3 Lymphocytes # 0.49 L (1.5-3.5) k/mm3 BUN/Creatinine Ratio 24.2 H (9.0-21.6) Random Glucose 120 H (70-110) mg/dL - Exam Constitutional: Present: No distress Extremity: Present: other - LLE--> distal capillary refill brisk, bandages in place clean/dry/intact Cauti Physician Documentation - Urinary Catheter Management Urethral (Moyer) Urethral Indwelling: No Date of Insertion: 12/06/18 Time of Insertion: 02:46 Assessment/Plan Plan Narrative: - 88 y/o female postop day 1 status post 3 screw fixation of left femoral neck fracture -Weightbearing as tolerated, assistance as needed -PT/OT progress as tolerated -P.o. diet as tolerated -P.o. pain medication as needed, due to significant effect of [place] will begin with Tylenol and taper dosages to have less effect on patient -DVT prophylaxis includes Lovenox, DEEPAK hose, SCDs in bed -Maintain surgical dressings in place -Due to patient's significant lack of responsiveness to stimulus, Dr. Hines wishes to proceed with a dose of Narcan, note patient is stable at this time has had no respiratory distress, will continue to monitor per medicine - Problems/Diagnosis (1) Subcapital fracture of left femur Problem: Acute Qualifiers: Encounter type: initial encounter Fracture type: closed Qualified Code(s): S72.012A - Unspecified intracapsular fracture of left femur, initial encounter for closed fracture
[2018-12-07] MEDS: OMEGA-3 FATTY ACIDS 1 CAP CAPSULE PO SCH (13:05)
[2018-12-07] MEDS: amLODIPine BESYLATE 10 MG TABLET PO SCH (13:05)
[2018-12-07] MEDS: METOPROLOL TARTRATE 50 MG TABLET PO SCH (13:05)
[2018-12-07] MEDS: ENALAPRIL MALEATE 20 MG TABLET PO SCH (13:05)
[2018-12-07] MEDS ORDERED: ENOXAPARIN SODIUM 40 MG/0.4 ML SYRG SC SCH ×3 (13:27→21:43)
[2018-12-07] MEDS ORDERED: NALOXONE HCL 1 MG/1 ML SYRG IV ONE (14:29)
[2018-12-07] MEDS ORDERED: METOPROLOL TARTRATE 1 MG/ML AMPUL IV STA (20:04)
[2018-12-07 20:29] LABS: Hematocrit 36.4 % (37.0-47.0); Hemoglobin 11.4 gm/dL (12.5-16.0); Mean Cell Volume 98.1 fl (78-100); Mean Corpuscular Hemoglobin 30.7 pg (27-31); Mean Corpuscular Hgb Conc 31.3 g/dl (32-36); Mean Platelet Volume 10.2 fl (8-12.5); Neutrophil # 11.7 K/mm3 (1.3-6.0); Neutrophil % 90.5 % (42-75.0); Platelet Count 148 K/mm3 (150-450); Red Blood Count 3.71 M/mm3 (4.2-5.4); Red Cell Distribution Width 13.3 % (11.5-14.0); White Blood Count 12.9 K/mm3 (4.0-10.5)
--- NOTE | 2018-12-07 23:22 | DS ---
Transfer Discharge Summary - Diagnosis(s)/Problems (1) Subcapital fracture of left femur Problem: Acute (2) Fall Problem: Acute (3) HTN (hypertension) Problem: Acute (4) Frailty Problem: Acute (5) UTI (urinary tract infection) Problem: Acute (6) Opioid intoxication Problem: Ruled-out (7) NSTEMI (non-ST elevated myocardial infarction) Problem: Acute (8) Respiratory failure Problem: Acute (9) New onset atrial fibrillation Problem: Acute - Course Description of Stay: 88-year-old female with past medical history of osteoporosis, right hip hemiarthroplasty, and hypertension status post percutaneous screw fixation of a valgus impacted left femoral neck fracture postop day #1 was evaluated at bedside and was found to be critically ill likely secondary to complications of orthopedic surgery. Patient became obtunded and unresponsive to verbal and tactile stimuli early this morning after being administered pain medications. Patient underwent her surgical procedure without any reported adverse events and was alert responsive with intact sensorium, but went into a deep sleep with heavy snoring after being administered opioids. Multiple doses of Narcan were administered but her arousal was only minimal. Patient would open her eyes in response to painful stimuli but close them again with minimal response. Throughout the day patient maintained adequate vitals and did not display any signs or symptoms of distress and had adequate oxygen saturation. However this evening nursing staff found patient again unarousable and unresponsive to verbal or tactile stimuli, and patient became tachycardic, tachypneic, and was found to have a fever. Therefore a CBC, chest x-ray, head CT without contrast, and cardi ac troponins were ordered which demonstrated leukocytosis and a head CT that was negative for hemorrhage or any acute pathological findings, cardiac enzymes were also positive. EKG was also ordered which demonstrated a new onset atrial fibrillation with rapid ventricular response, IV metoprolol was administered to control rate. Patient's anticoagulation therapy was increased from prophylactic to therapuetic levels and she was placed on a BiPAP machine after an ABG demonstrated respiratory acidosis and low oxygen saturation. Patient had a well's criteria score for VTE of 6 which demonstrated moderate to high probability of a PE therefore d-dimer and CT angiogram were ordered to rule out PE. D-dimer was above 3 indicating a high likelihood of a VTE most likely a pulmonary embolism given the clinical picture, however Chest CT angio is negative for PE but demostrate an incidental finding of Aortic aneurysm and small harini. pleural effusions and atelectesis. Findings were discussed with patient's family and they are in agreement to have patient transferred to [facility] where patient can be evaluated and treated by a administrative supervisor. Transfer procedure was initiated after patient was accepted by Dr. Shaunna Kaiser and was assigned a bed in CCU at [facility]. Patient currently displays stable vitals and is currently on a BiPAP machine maintaining adequate saturation. Family members were informed of discharge plans and they are in agreement. Procedures Performed: see notes below Procedures: Percutaneous screw fixation of a valgus impacted left femoral neck fracture. - Results and Findings Results and Findings: Laboratory Results - last 24 hr 12/07/18 12/07/18 12/07/18 05:40 05:40 20:00 WBC 10.2 D 12.9 H D RBC 3.63 L 3.71 L Hgb 11.1 L 11.4 L Hct 35.1 L 36.4 L MCV 96.7 98.1 MCH 30.6 30.7 MCHC 31.6 L 31.3 L RDW 13.2 13.3 Plt Count 162 148 L MPV 10.1 10.2 Immature Gran % (Auto) 0.80 H 1.20 H Immature Gran # (Auto) 0.08 H 0.16 H Neutrophils % 88.0 H 90.5 H Lymphocytes % 4.8 L 3.3 L Monocytes % 5.8 4.9 Eosinophils % 0.4 0.0 Basophils % 0.2 0.1 Nucleated RBC % 0.0 0.0 Neutrophils # 8.9 H 11.7 H Lymphocytes # 0.49 L 0.43 L Monocytes # 0.6 0.6 Eosinophils # 0.0 0.0 Absolute Basophils 0.0 0.0 D-Dimer pCO2 pO2 HCO3 Total CO2 Base Excess ABG pH ABG O2 Sat (Measured) Sodium 138 Plasma Sodium 138 Potassium 4.3 Chloride 104 Carbon Dioxide 30.2 Anion Gap 8.1 BUN 15 Creatinine 0.62 Est GFR (Non-Af Amer) 97 D BUN/Creatinine Ratio 24.2 H Random Glucose 120 H Calcium 8.8 Troponin I 12/07/18 12/07/18 12/07/18 20:00 20:00 20:05 WBC RBC Hgb Hct MCV MCH MCHC RDW Plt Count MPV Immature Gran % (Auto) Immature Gran # (Auto) Neutrophils % Lymphocytes % Monocytes % Eosinophils % Basophils % Nucleated RBC % Neutrophils # Lymphocytes # Monocytes # Eosinophils # Absolute Basophils D-Dimer 3.09 H pCO2 58.3 H pO2 70.7 L HCO3 24.8 Total CO2 26.6 H Base Excess -3.2 L ABG pH 7.25 L ABG O2 Sat (Measured) 91.1 L Sodium Plasma Sodium Potassium Chloride Carbon Dioxide Anion Gap BUN Creatinine Est GFR (Non-Af Amer) BUN/Creatinine Ratio Random Glucose Calcium Troponin I 0.166 H* - Medications Medications: Active Medications Hydrocodone Bitart/Acetaminophen (Quinn 5-325) 1 each PO Q6H PRN PRN Reason: Moderate Pain (pain scale 4-6) Stop: 01/05/19 14:27 Last Admin: 12/06/18 16:52 Dose: 1 each Documented by: Hydrocodone Bitart/Acetaminophen (Quinn 5-325) 2 each PO Q6H PRN PRN Reason: Severe Pain (pain scale 7-10) Stop: 01/05/19 14:27 Last Admin: 12/07/18 01:58 Dose: 2 each Documented by: Amlodipine Besylate (Norvasc) 1 mg PO DAILY [facility] Stop: 01/05/19 11:16 Last Admin: 12/07/18 13:05 Dose: Not Given Documented by: Ascorbic Acid (Vitamin C) 500 mg PO DAILY [facility] Stop: 01/06/19 09:01 Last Admin: 12/07/18 13:05 Dose: Not Given Documented by: Enalapril Maleate (Vasotec) 20 mg PO DAILY [facility] Stop: 01/05/19 11:31 Last Admin: 12/07/18 13:05 Dose: Not Given Documented by: Sodium Chloride (Sodium Chloride 0.9%) 1,000 mls @ 125 mls/hr IV .Q8H PRN PRN Reason: HYDRATION Stop: 01/05/19 14:27 Last Admin: 12/07/18 16:59 Dose: 125 mls/hr Documented by: Ceftriaxone Sodium 2,000 mg/ (Dextrose/Water) 100 mls @ 200 mls/hr IV Q24H SOF[facility] Stop: 01/06/19 13:01 Last Infusion: 12/07/18 13:30 Dose: Infused Documented by: Metoprolol Tartrate (Lopressor) 50 mg PO DAILY [facility] Stop: 01/05/19 11:16 Last Admin: 12/07/18 13:05 Dose: Not Given Documented by: Morphine Sulfate (Morphine Sulfate) 2 mg IV Q1H PRN PRN Reason: Pain Stop: 01/05/19 02:16 Last Admin: 12/06/18 07:08 Dose: 2 mg Documented by: (Garlic 500 Mg) 500 mg PO DAILY SOF[facility] Stop: 01/06/19 09:01 Last Admin: 12/07/18 13:05 Dose: Not Given Documented by: [id number] Ethyl Esters ([place]-3 1000 Mg) 2 cap PO BID SOF[facility] Stop: 01/05/19 21:01 Last Admin: 12/07/18 13:05 Dose: Not Given Documented by: Senna/Docusate Sodium (Senokot-S) 2 tab PO HS SOF[facility] Stop: 01/05/19 21:01 Last Admin: 12/06/18 21:13 Dose: 2 tab Documented by: Vit A/Vit C/Vit E/Selen/Cu/Zn/Lutei (Ocuvite) 1 tab PO DAILY [facility] Stop: 01/05/19 11:16 Last Admin: 12/07/18 13:05 Dose: Not Given Documented by: Discontinued Medications Acetaminophen (Tylenol) 2 mg PO DAILY [facility] Stop: 01/06/19 09:01 Last Admin: 12/07/18 14:06 Dose: Not Given Documented by: Cefazolin Sodium (Ancef) 1 gm IV PRN PRN; Protocol PRN Reason: Perioperative Stop: 12/06/18 23:59 Last Admin: 12/06/18 13:35 Dose: 1 gm Documented by: Enoxaparin Sodium (Lovenox) 40 mg SC Q24H SOFYA Stop: 01/06/19 13:28 Last Admin: 12/07/18 13:06 Dose: 40 mg Documented by: Sodium Chloride (Sodium Chloride 0.9%) 500 mls @ 999 mls/hr IV .Q31M ONE Stop: 12/06/18 10:55 Last Infusion: 12/06/18 11:06 Dose: Infused Documented by: Sodium Chloride (Sodium Chloride 0.9%) 1,000 mls @ 125 mls/hr IV .Q8H ONE Stop: 12/06/18 18:29 Last Infusion: 12/06/18 15:00 Dose: Infused Documented by: Metoprolol Tartrate (Lopressor) 5 mg IV ONCE STA Stop: 12/07/18 20:05 Last Admin: 12/07/18 20:08 Dose: 5 mg Documented by: Morphine Sulfate (Morphine Sulfate) 2 mg IV ONCE ONE Stop: 12/05/18 21:44 Last Admin: 12/05/18 22:11 Dose: 2 mg Documented by: Morphine Sulfate (Morphine Sulfate) 2 mg IV ONCE ONE Stop: 12/05/18 23:31 Last Admin: 12/06/18 00:15 Dose: 2 mg Documented by: Naloxone HCl (Narcan) 0.2 mg IV ONCE STA Stop: 12/07/18 11:44 Last Admin: 12/07/18 12:57 Dose: 0.2 mg Documented by: Naloxone HCl (Narcan) 0.2 mg IV ONCE ONE Stop: 12/07/18 14:30 Last Admin: 12/07/18 14:38 Dose: 0.2 mg Documented by: Naloxone HCl (Narcan) 0.4 mg IV ONCE STA Stop: 12/07/18 18:36 Last Admin: 12/07/18 20:00 Dose: 0.4 mg Documented by: Non-Formulary Medication (Lutein/Zeaxanthin [Ocuvite Lutein 25-5 Mg Softgel]) 1 ea PO DAILY [facility] Stop: 01/05/19 11:16 Last Admin: 12/06/18 11:25 Dose: Not Given Documented by: Ondansetron HCl (Zofran) 4 mg IV ONCE ONE Stop: 12/05/18 21:44 Last Admin: 12/05/18 22:11 Dose: 4 mg Documented by: - Disposition Disposition: Short Term Hospital Inpatient Condition: Serious Discharge Date: 12/08/18 Discharge Time: 00:31
[2018-12-07] MEDS ORDERED: ENOXAPARIN SODIUM 30 MG/0.3 ML SYRG SC ONE (23:53)
[2018-12-08] MEDS ORDERED: ACETAMINOPHEN 650 MG TABLET PO SCH (09:00)
[2018-12-08 14:38] VITALS: BP 146/77
== END 2018-12-08 01:41 | disposition short-term general hospital (02) | DRG 480 ==
LOC: ER 21:18 → MS 12-06 02:01
PROVIDERS: ADMIT Family Medicine; ATTEND Family Medicine
DX: T40.2X5A Adverse effect of other opioids, initial encounter; M81.0 Age-related osteoporosis without current pathological fracture; I71.9 Aortic aneurysm of unspecified site, without rupture; W01.190A Fall on same level from slipping, tripping and stumbling with subsequent striking against furniture, initial encounter; J96.00 Acute respiratory failure, unspecified whether with hypoxia or hypercapnia; N39.0 Urinary tract infection, site not specified; E87.2 Acidosis; I21.4 Non-ST elevation (NSTEMI) myocardial infarction; Y92.230 Patient room in hospital as the place of occurrence of the external cause; I10 Essential (primary) hypertension; I48.91 Unspecified atrial fibrillation; S72.012A Unspecified intracapsular fracture of left femur, initial encounter for closed fracture; Z23 Encounter for immunization; R54 Age-related physical debility
CPT/HCPCS: 36415; 36600; 51702; 70450; 71010; 71045; 71275; 72190; 73502; 73700; 76000; 80048; 81001; 82803; 84484; 85025; 85379; 87077; 87086; 87186; 93005; 94660; 96374; 96375; 97163; 99284; J2405